=== PATIENT | female | born 1930 | race Asian ===

== ENCOUNTER 2016-11-01 10:22 | Emergency (ER) | payer MEDICARE, OTHER ==
[~2016-11-01] VITALS: Ht 149.9 cm; Wt 60.9 kg
[~2016-11-01 10:22] MED LIST: ASPI-891 PO; CALC-724 PO; CLOP75 PO; FAMO-136 PO; FISH1CAP22 PO; METF500T4 PO; MULT1TAB PO; NEBI5 PO; RALO60 PO; ROSU20 PO; TELM1TAB2 PO
[2016-11-01 10:42] LABS: GLUCOSE,POINT OF CARE 116 MG/DL (70-110)
[2016-11-01] MEDS ORDERED: ASPI81TA2 PO (10:42)
[2016-11-01] MEDS ORDERED: PRAV20TA4 PO (10:42)
[2016-11-01] MEDS ORDERED: METO-325 PO (10:42)
[2016-11-01 11:02] LABS: BASOPHILS % (AUTO) 0.9 % (0.0-2.0); EOSINOPHILS % (AUTO) 3.8 % (1.0-6.0); HEMATOCRIT 37.3 % (36-46); LYMPHOCYTES # (AUTO) 1.6 K/uL (1.0-4.8); LYMPHOCYTES % (AUTO) 21.4 % (22.0-44.0); MEAN CORPUSCULAR HEMOGLOBIN 28.6 pg (26.0-34.0); MEAN CORPUSCULAR HGB CONC 32.3 G/dL (31.0-37.0); MEAN CORPUSCULAR VOLUME 89 fL (80-100); MONOCYTES # (AUTO) 0.4 K/uL (0.1-1.0); NEUTROPHILS # (AUTO) 5.2 K/uL (1.8-7.7); NEUTROPHILS % (AUTO) 68.9 % (40.0-70.0); PLATELET COUNT (AUTO) 349 K/uL (150-450); RED BLOOD CELL COUNT(AUTO) 4.21 MIL/uL (4.00-5.20); RED CELL DISTRIBUTION WIDTH 14.9 % (11.5-14.5); WHITE BLOOD COUNT (AUTO) 7.6 K/uL (4.5-11.0)
[2016-11-01 12:27] LABS: INR 0.9 (0.9-1.1); PROTHROMBIN TIME 9.4 SEC (9.4-11.6)
[2016-11-01 14:27] LABS: GLUCOSE,POINT OF CARE 110 MG/DL (70-110)
[2016-11-01 14:45] VITALS: BP 144/69
== END 2016-11-01 14:55 | disposition home or self-care (01) ==
LOC: EMS 10:30
DX: N95.0 Postmenopausal bleeding (principal); R93.8 Abnormal findings on diagnostic imaging of other specified body structures; I10 Essential (primary) hypertension; E78.00 Pure hypercholesterolemia, unspecified; E11.9 Type 2 diabetes mellitus without complications; Z88.5 Allergy status to narcotic agent; Z79.82 Long term (current) use of aspirin
CPT/HCPCS: 76856; 82962; 99285